=== PATIENT | female | born 1955 | race Caucasian/White ===

== ENCOUNTER → 2016-07-26 | Outpatient (CLI) | payer BC, OTHER ==
[~2016-07-26] MED LIST: ASCO500T2 PO; HORMONE REPLACEMENT; IBUP200T58 PO; LEVO100T5 PO; NAPR220T70 PO; PROG100C7 PO; THYR60TA PO; TRIA1TAB2 PO; VITA1CAP3 PO
[2016-07-26 15:27] LABS: BASO % 1 % (0-3); EOS % 3 % (0-3); HEMATOCRIT 41.9 % (36.0-47.0); HEMOGLOBIN 13.9 g/dL (12.0-15.5); LYMPH # 1.9 x10^3/uL (1.0-4.8); LYMPH % 28 % (24-48); MEAN CORPUSCULAR HEMOGLOBIN 32 pg (25-35); MEAN CORPUSCULAR HGB CONC 33 g/dL (31-37); MEAN CORPUSCULAR VOLUME 98 fL (79-100); MONO % 7 % (0-9); NEUT % 62 % (31-73); PLATELET COUNT 291 x10^3/uL (140-400); RED BLOOD COUNT 4.29 x10^6/uL (3.50-5.40); RED CELL DISTRIBUTION WIDTH 12.5 % (11.5-14.5)
[2016-07-26 15:38] LABS: PROTHROMBIN TIME PATIENT 12.1 SEC (11.7-14.0)
[2016-07-26 15:44] LABS: ALBUMIN/GLOBULIN RATIO 1.2 (1.0-1.7); CALCIUM 9.7 mg/dL (8.5-10.1); CREATININE 0.9 mg/dL (0.6-1.0); GFR 63.4; POTASSIUM 3.7 mmol/L (3.5-5.1); TOTAL BILIRUBIN 0.3 mg/dL (0.2-1.0); TOTAL PROTEIN 7.3 g/dL (6.4-8.2)
== END | disposition home or self-care (01) ==
LOC: SURGPAT 13:25
PROVIDERS: ATTEND Neurological Surgery
DX: Z01.818 Encounter for other preprocedural examination (principal)
CPT/HCPCS: 36415; 80053; 85027; 85610; 85730; 87641

== ENCOUNTER 2016-08-02 07:54 | Inpatient (IN) | payer BC ==
--- NOTE | 2016-07-30 10:44 | HP ---
ADMIT DATE: 08/02/2016 HISTORY OF PRESENT ILLNESS: The patient is a pleasant 60-year-old woman who is having difficulty with low back pain and pain which radiates into her left leg. The pain tends to radiate into the left hip and buttock and then radiates down her left lateral thigh and leg. There is some pain, which can radiate into the left inguinal region. There is also pain which can radiate into her right buttock along with tingling in that distribution. The problem started about 2-1/2 years ago. The pain did get better after conservative therapy including epidural steroid injections and now is worsening again. She says that in the morning she is having severe pain. She rates her pain as a 6-7/10. As the day progresses, the pain can improve. She said her most recent epidural steroid injection was in April 2016 and only helped her for about 2 weeks. She takes Advil to help control the pain. She does not notice weakness in her lower extremities. PAST MEDICAL HISTORY: Kidney stones, hypothyroidism. PAST SURGICAL HISTORY: Knee surgery in 07/2012, foot surgery in 07/2015. FAMILY HISTORY: Diabetes, heart problem/disease. 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 . Exercises daily. Denies substance abuse. Denies tobacco use. Drinks alcohol one to two times per month. ALLERGIES: No known drug allergies. CURRENT MEDICATIONS: Progesterone, levothyroxine, Zyrtec, Advil, diuretic. REVIEW OF SYSTEMS: A 12-point review of systems was obtained and is noncontributory except that mentioned above. PHYSICAL EXAMINATION: NEUROSURGERY EXAMINATION: GENERAL APPEARANCE: Alert, pleasant, no acute distress. HEAD: Normocephalic, atraumatic. SKIN: Warm and dry. MUSCULOSKELETAL: Lumbar paraspinal muscle bulk is normal, restricted range of motion of lumbar spine, [id number] tenderness of lower lumbar spine with palpation, normal range of motion of the lower extremities bilaterally. EXTREMITIES: No clubbing, cyanosis, or edema. NEUROLOGIC: Alert and oriented x 3, normal recent and remote memory, strength 5/5 in bilateral lower extremities, sensory was intact to light touch in bilateral lower extremities, reflexes were present and symmetric in the lower extremities bilaterally, straight leg raising was positive on the left side with buttock and posterior thigh pain. Straight leg raising was negative on the right, normal gait. IMAGING: I reviewed a lumbar MRI scan from 03/2016. I additionally reviewed plane lumbar radiographs from 2014. On the plain films, there is a grade 2 spondylolisthesis at L4-L5. There did not appear to be significant motion on flexion and extension films. On the MRI scan with the patient in supine position, the spondylolisthesis appears to be moderately large grade 1 at L4-L5. Additionally, at this level, there is severe lumbar spinal stenosis. ASSESSMENT/ PLAN: She has severe lumbar spinal stenosis and grade 2 spondylolisthesis at L4-L5 with standing. She has bilateral radicular symptoms which are worse on the left side and she has failed conservative measures. At this point, I recommend that she undergo lumbar laminectomy combined with posterior instrumentation and posterolateral fusion as well as anterior diskectomy and fusion at L4-L5. I discussed surgery with her in detail. I outlined the technique as well as the expected postoperative course. She understands. She would like to go ahead. I did outline the risk of surgery including nerve root injury and infection. I spoke about the possibility that she may not improve. I explained the importance of achieving fusion and explained that if she did not, she may require further surgery. She understands. She would like to go ahead. We will make the arrangements. RADHA MCKEON MD DR: ELIZABETH/arturo JOB#: [id number] / [id number] [place]
[2016-08-02] VITALS (9 sets, daily range): BP systolic 123–147; BP diastolic 61–83
[~2016-08-02] VITALS: Ht 172.7 cm; Wt 62.6 kg
[~2016-08-02 07:54] MED LIST changes: +CEFAZOLIN 2GM PREMIX 50 ML IV PRN; +HYDROMORPHONE 2 MG/ML VIAL. IV PRN; +IV RINGERS,LACTATED 1000ML 1,000 ML IV SCH; +LIDOCAINE 1% 1 ML SYRINGE. ID PRN; +ONDANSETRON PF 4 MG/2 ML VIAL. IV PRN; +PROCHLORPERAZINE 10 MG/2 ML VIAL. IV PRN
[2016-08-02] MEDS ORDERED: ROCURONIUM 50 MG/5 ML VIAL. ONE (08:14)
[2016-08-02] MEDS ORDERED: PHENYLEPHRINE in 0.9% NACL PF 1 MG/10 ML DISP.SYRIN. IV ONE (08:14)
[2016-08-02] MEDS ORDERED: DEXAMETHASONE SOD PHOS 20 MG/5 ML VIAL. ONE (08:14)
[2016-08-02] MEDS ORDERED: ONDANSETRON PF 4 MG/2 ML VIAL. ONE ×2 (08:14→11:06)
[2016-08-02] MEDS ORDERED: LIDOCAINE 2% 100 MG/5 ML DISP.SYRIN. ONE (08:14)
[2016-08-02] MEDS ORDERED: PROPOFOL 20 ML IV ONE (08:14)
[2016-08-02] MEDS ORDERED: PROPOFOL 100 ML IV ONE (08:17)
[2016-08-02] MEDS ORDERED: GELATIN SPONGE SIZE 100. ONE (08:34)
[2016-08-02] MEDS ORDERED: THROMBIN 20,000 UNIT SPRAY.SYRN KIT TP ONE (08:34)
[2016-08-02] MEDS ORDERED: KETOROLAC 60 MG/2 ML SYRINGE FOR OR. ONE (08:34)
[2016-08-02] MEDS ORDERED: BUPIVAC MPF-EPI 0.5%-1:200000 30 ML VIAL. ONE (08:34)
[2016-08-02] MEDS ORDERED: CEFAZOLIN PREMIX 2 GM/50 ML BAG. IV ONE ×2 (09:00→15:17)
[2016-08-02] MEDS ORDERED: FENTANYL PF 100 MCG/2 ML VIAL. ONE (09:27)
[2016-08-02] MEDS ORDERED: REMIFENTANIL 2 MG VIAL. IV ONE ×2 (09:27→13:27)
[2016-08-02] MEDS ORDERED: FAMOTIDINE 20 MG/2 ML VIAL ONE (09:28)
[2016-08-02] MEDS ORDERED: DESFLURANE > 120 MINUTES IH ONE (11:03)
[2016-08-02] MEDS ORDERED: EPHEDRINE PF IN SALINE 50 MG/5 ML DISP.SYRIN. IV ONE (11:04)
--- NOTE | 2016-08-02 11:34 | RAD ---
CT of the lumbar spine without contrast, 08/02/2016: History: Back pain, brain lab study Noncontrast scans were obtained with multiplanar reconstructions produced. The data was transferred to the operating room today aid in the patient's stereotactically guided surgery. The following findings are delineated: 1. At L1-2 there is no significant posterior disc bulge or protrusion. The central spinal canal and neural foramina are well maintained. 2. At L2-3 there are mild degenerative changes involving the facet joints with moderate posterior ligamentous thickening. There is moderate broad-based posterior disc bulging. There is a slight reverse spondylolisthesis. The thecal sac narrows down to an AP diameter of approximately 8 mm at the midline. There is moderate inferior foraminal encroachment bilaterally. 3. At L3-4 there are moderate degenerative changes involving the facet joints. There is considerable posterior ligamentous thickening. There is mild broad-based posterior disc bulging. The thecal sac narrows down to an AP diameter of 7 mm at the midline. There is moderate inferior foraminal encroachment bilaterally. 4. At L4-5 there are extensive hypertrophic degenerative changes involving the facet joints. There is an associated grade 1-2 spondylolisthesis with approximately 9 mm of anterior subluxation of the L4 vertebral body relative to L5. There is disc space narrowing with a vacuum disc phenomena. There is moderate posterior disc protrusion which is greatest at the level of the medial aspect of the right neural foramen. There is moderate central spinal stenosis in a triangular configuration. There is moderate bilateral foraminal encroachment, worse on the right. 5. At L5-S1 there is mild posterior disc bulging and spurring there are mild degenerative changes involving the facet joints. The central spinal canal is well-preserved. There is mild left foraminal encroachment.
[2016-08-02] MEDS: BACITRACIN 50,000 UNIT in IV NORMAL SALINE 1000ML BAG 1,000 ML IRR ONE ×2 (11:39→11:49)
[2016-08-02] MEDS ORDERED: PROPOFOL 50 ML IV ONE (13:26)
[2016-08-02] MEDS ORDERED: 0.9 % SODIUM CHLORIDE 50 ML VIAL. IJ ONE ×2 (13:27)
[2016-08-02] MEDS ORDERED: ONDANSETRON PF 4 MG/2 ML VIAL. IV PRN (16:00)
[2016-08-02] MEDS ORDERED: CALCIUM CARBONATE 500 MG TAB.CHEW PO PRN (16:00)
[2016-08-02] MEDS ORDERED: MAGNESIUM HYDROXIDE 2,400 MG/30 ML ORAL.SUSP. PO PRN (16:00)
[2016-08-02] MEDS ORDERED: HORMONE REPLACEMENT SCH (16:00)
[2016-08-02] MEDS ORDERED: DIPHENHYDRAMINE HCL 25 MG CAPSULE PO PRN (16:00)
[2016-08-02] MEDS ORDERED: OXYCODONE/APAP 5/325 TABLET. PO PRN (16:00)
[2016-08-02] MEDS ORDERED: 0.9 % SODIUM CHLORIDE 10 ML DISP.SYRIN. IV PRN (16:00)
[2016-08-02] MEDS ORDERED: ACETAMINOPHEN 325 MG TABLET. PO PRN (16:00)
[2016-08-02] MEDS ORDERED: FENTANYL PF 100 MCG/2 ML VIAL. IV PRN (16:00)
[2016-08-02] MEDS ORDERED: TRIAMTERENE/HCTZ 37.5/25MG TABLET. PO PRN (16:00)
[2016-08-02] MEDS ORDERED: DIPHENHYDRAMINE 50 MG/ML VIAL IV PRN (16:00)
[2016-08-02] MEDS ORDERED: ZOLPIDEM 5 MG TABLET. PO PRN (16:00)
[2016-08-02] MEDS ORDERED: MAG HYDROX/AL HYDROX/SIMETH 30 ML ORAL.SUSP PO PRN (16:00)
[2016-08-02] MEDS ORDERED: CYCLOBENZAPRINE 10 MG TABLET. PO PRN (16:00)
[2016-08-02] MEDS: FENTANYL PF 100 MCG/2 ML VIAL. IV PRN ×7 (16:02→21:13)
[2016-08-02] MEDS: MORPHINE SULFATE 2 MG/ML DISP.SYRIN. IV PRN ×3 (16:05→16:29)
[2016-08-02] MEDS: PROGESTERONE, MICRONIZED 100 MG CAPSULE PO SCH (17:00)
--- NOTE | 2016-08-02 17:12 | OP ---
DATE OF SURGERY: 08/02/2016 PREOPERATIVE DIAGNOSES: Spondylolisthesis grade 2, L4-L5 with severe lumbar spinal stenosis and lumbar radiculopathy. POSTOPERATIVE DIAGNOSES: Spondylolisthesis grade 2, L4-L5 with severe lumbar spinal stenosis and lumbar radiculopathy. OPERATION PERFORMED: Bilateral hemilaminotomies with decompression of dura and nerve root, L4-L5, posterior instrumentation and posterolateral fusion, L4-L5 with autograft and allograft bone. The operation was done with bone marrow aspirate, BrainLAB guidance, EMG, triggered EMG, fluoroscopy. SURGEON: John Mckeon M.D. SURVEYOR [employer] DIRECTIONAL: José Antonio Cool MD, assisted with surgery, assisted with the exposure, the microdecompression as well as the instrumentation and closure. OPERATIVE INDICATIONS: The patient is a very pleasant 60-year-old who developed intractable back and bilateral leg pain, worse on the left side, was found on imaging studies to have the above-mentioned findings. I recommended decompression and instrumented fusion. I spoke with her about the surgery, the risks, the technique and the expected postoperative course and she wished to go ahead. DESCRIPTION OF PROCEDURE: Following general endotracheal anesthesia, the patient was placed in the prone position carefully on the Ambrose table. We were careful to avoid any pressure points. Her lumbar region was prepped and draped in the standard fashion. CELSO hose and AV impulse boots were applied for DVT prophylaxis. A microscope was draped. Fluoroscopy was draped and brought in the field. Ancef 2 grams was given less than 1 hour prior to initiation of the procedure. The BrainLAB system was initialized by placing 2 pins in the right iliac crest and then an incision was made in the midline over the L4-L5 interspace. I dissected down through the skin and subcutaneous tissue, reflected the paraspinal muscles and placed a Bellflower micro disc retractor. I, at this point, used the BrainLAB system to cannulate the pedicles at L4 and L5 bilaterally. This was done by first drilling into the posterior aspect of the pedicle, using anatomic landmarks as well as BrainLAB system. We also used stimulated EMG monitoring for the placement of the black ball followed by the tap, followed by screw placement at the left side and then followed at the right side. The pedicles were tapped. We then covered those openings with bone wax, and then directed my attention to the right side at L4-L5, brought in the microscope and using microscopic technique under magnification, I burred down a very generous hemilaminotomy. There was very thickened, hypertrophic ligament, which was markedly compressing the root and dura at the level of the disc and extending both above and below this and I worked gently and trimmed this material away. It was very severely compressing on the right side, less so on the left side, but still marked compression was present, which was completely relieved. I did perform partial foraminotomies. I did work superiorly and visualized the upper exiting root. Following this, then I evaluated for the placement of an anterolateral cage. The L4 root was enlarged, swollen and could not be manipulated without discharging and was evidence on the EMG monitor. For this region, I felt that it would be imprudent to perform an anterior discectomy and fusion and that there would be too much pressure on the nerve root. Therefore, I placed pedicle screws at L4 and L5 using [employer] system and 6.5 screws. The rods were placed. The system was torqued. I did work to help reduce the spondylolisthesis. Posterolaterally, I excoriated the transverse processes and lateral facets and aspirated 20 mL of bone marrow and mixed this with allograft and autograft and placed this in the lateral gutters. At this point, then I irrigated copiously with antibiotic solution. I had an excellent decompression. I did lay Gelfoam over the hemilaminotomy sites. The nerve roots were well visualized under no significant pressure. I irrigated, removed the retractors, and obtained hemostasis in the muscle and I closed the wound in layers with absorbable suture and the skin was closed with 4-0 subcuticular stitch. The operation went very well and the patient was taken to recovery room in excellent condition. I was quite pleased with the surgery. JOHN MCKEON MD DR: ELIZABETH/arturo JOB#: [id number] / [id number] [place]
[2016-08-02] MEDS: CEFAZOLIN SODIUM 1 GM in IV NORMAL SALINE 50ML 50 ML IV SCH (18:35)
[2016-08-02] MEDS: DOCUSATE SODIUM 100 MG CAPSULE PO SCH (21:08)
[2016-08-02] MEDS: POTASSIUM CL 20MEQ D5-0.45NACL 1,000 ML IV SCH (22:32)
[2016-08-03] MEDS: CEFAZOLIN SODIUM 1 GM in IV NORMAL SALINE 50ML 50 ML IV SCH ×2 (02:57→10:36)
[2016-08-03 03:07] VITALS: BP 127/66
[2016-08-03] MEDS: POTASSIUM CL 20MEQ D5-0.45NACL 1,000 ML IV SCH (05:15)
[2016-08-03] MEDS: OXYCODONE/APAP 5/325 TABLET. PO PRN ×2 (06:42→12:24)
[2016-08-03 06:56] VITALS: BP 126/78
[2016-08-03] MEDS ORDERED: LEVOTHYROXINE 100 MCG TABLET PO SCH (07:00)
[2016-08-03] MEDS: DOCUSATE SODIUM 100 MG CAPSULE PO SCH (08:44)
[2016-08-03] MEDS: PROGESTERONE, MICRONIZED 100 MG CAPSULE PO SCH (08:44)
[2016-08-03] MEDS ORDERED: ASCORBIC ACID 500 MG TABLET PO SCH (09:00)
--- NOTE | 2016-08-03 10:02 | DISCH ---
DISCHARGE INSTRUCTIONS Condition on Discharge Condition on Discharge: Stable Activity After Discharge Activity Instructions for Disc: Activity as tolerated, Avoid exertion Bathing Instructions: Shower-keep dressing dry Lifting Instructions after Dis: No heavy lifting, No pulling or pushing, Do not lift >10 pounds Driving Instructions after Dis: No driving for 2 weeks Diet after Discharge Additional Diet Restrictions: resume home diet Wound Incision Care Wound/Incision Care: Ice to area for comfort Other wound/incision instructi: may remove dressing in 48 hrs if dry then may shower- no soaking Contacting the after DC Call your doctor for: Concerns you may have Follow-Up Follow up with: Dr. Mckeon in 2 weeks [phone] RADHA MCKEON MD Aug 03, 2016 10:02
[2016-08-03] MEDS ORDERED: DOCU-27 PO (10:04)
[2016-08-03] MEDS ORDERED: CYCL10TA2 PO (10:04)
[2016-08-03] MEDS ORDERED: OXYC1TAB7 PO (10:04)
--- NOTE | 2016-08-03 11:39 | DS ---
DATE OF DISCHARGE: 08/03/2016 DISCHARGE DIAGNOSES: Spondylolisthesis grade 2, L4-L5 with severe lumbar spinal stenosis and lumbar radiculopathy. OPERATION PERFORMED: Bilateral hemilaminotomies with decompression of dura and nerve root, L4-L5, posterior instrumentation and fusion L4-L5. HISTORY OF PRESENT ILLNESS: The patient is a very pleasant 60-year-old who developed intractable back and bilateral leg pain, worse on the left and was found to have the above-mentioned findings on imaging studies. I recommended decompression and instrumented fusion. She understood the surgery and the risk and wished to proceed. HOSPITAL COURSE: She was admitted to the floor postoperatively where she did well. She was up ambulating in the room in the halls. Physical therapy was initiated and instruction was given to her regarding her activities. Her pain is well controlled. She notes significant improvement in her lower extremity pain. She is in good condition, was discharged home. DISCHARGE MEDICATIONS: She will resume her medications per the [facility]. DISCHARGE INSTRUCTIONS: She was instructed regarding incision care, activity restrictions and expectations for the next several weeks. She will follow up in our office in 2 weeks. She understands to call with any questions or concerns. RADHA MCKEON MD DR: LOREE/arturo JOB#: [id number] / [id number]
[2016-08-03 12:24] VITALS: BP 122/73
== END 2016-08-03 14:50 | disposition home or self-care (01) | DRG 460 ==
LOC: OPSVCIP 07:54 → 4 SOUTHEST 17:01
PROVIDERS: ADMIT Neurological Surgery; ATTEND Neurological Surgery
PROC: 01NB0ZZ Release Lumbar Nerve, Open Approach (ICD-10-PCS; 2016-08-02)
PROC: 4A11X4G Monitoring of Peripheral Nervous Electrical Activity, Intraoperative, External Approach (ICD-10-PCS; 2016-08-02)
PROC: 0SG0071 Fusion of Lumbar Vertebral Joint with Autologous Tissue Substitute, Posterior Approach, Posterior Column, Open Approach (ICD-10-PCS; principal; 2016-08-02 10:00)
DX: M48.06 Spinal stenosis, lumbar region (principal); M54.16 Radiculopathy, lumbar region; M43.16 Spondylolisthesis, lumbar region; E03.9 Hypothyroidism, unspecified; Z83.3 Family history of diabetes mellitus; Z87.442 Personal history of urinary calculi
CPT/HCPCS: 36415; 72131; 76000; 86850; 86900; 86901; 88304; 88311; C1713; J0690; J1100; J1885; J2270; J2370; J2405; J2704; J3010; J3490; J7030; J7120; S0028; 97530

== ENCOUNTER → 2016-10-21 | Outpatient (CLI) | payer BC ==
[~2016-10-21] MED LIST changes: -CEFAZOLIN 2GM PREMIX 50 ML IV PRN; +CYCL10TA2 PO; +DOCU-27 PO; -HYDROMORPHONE 2 MG/ML VIAL. IV PRN; -IV RINGERS,LACTATED 1000ML 1,000 ML IV SCH; -LIDOCAINE 1% 1 ML SYRINGE. ID PRN; -ONDANSETRON PF 4 MG/2 ML VIAL. IV PRN; +OXYC1TAB7 PO; -PROCHLORPERAZINE 10 MG/2 ML VIAL. IV PRN
--- NOTE | 2016-10-21 09:30 | KCIC ---
PROCEDURE Two views lumbar spine. HISTORY Fusion in July. Left hip pain. TECHNIQUE Two views of the lumbar spine are submitted for review. COMPARISON MRI from April 01, 2016. FINDINGS Since prior study there has been pedicle screw and suleman instrumentation at L4-L5 with partial decompression on the left. Hardware appears well seated. Anterolisthesis at this level is decreased to 8 millimeters. Retrolisthesis at L2-L3 and L3-L4 appear similar to prior study. There is no fracture. Vertebral body height is maintained. IMPRESSION Pedicle screw and suleman instrumentation at L4-L5, decrease in the degree of anterolisthesis at this level. Electronically signed by: Dale Siegel MD (Oct 21, 2016 09:29:09)
== END | disposition home or self-care (01) ==
LOC: KCIC 08:18
PROVIDERS: ATTEND Neurological Surgery
DX: M25.552 Pain in left hip (principal)
CPT/HCPCS: 72100

== ENCOUNTER → 2017-03-25 | Outpatient (CLI) | payer BC ==
[~2017-03-25] MED LIST changes: +DOCU-109 PO; -DOCU-27 PO; +PROG100C15 PO; -PROG100C7 PO
--- NOTE | 2017-03-25 13:02 | KCIC ---
Examination: 5 views of the cervical spine and 2 views of the lumbar spine HISTORY: History of neck pain, lumbar fusion, low back pain COMPARISON: Lumbar spine from 10/21/2016 FINDINGS: Cervical spine: There is reversal of normal cervical lordosis There is severe intervertebral disc height loss identified at C5-C6, C6-C7 vertebral levels with moderate size anterior osteophyte formation The facets are well aligned There is mild compression changes of C5, C6 vertebral levels No evidence of prevertebral soft tissue swelling identified There is severe neural foraminal identified at C5-C6. There is moderate neural foraminal narrowing identified at C6-C7, C7-T1 vertebral levels. There is moderate foraminal narrowing identified at left C3-C4 vertebral level. Lateral masses of C1 are aligned with C2 vertebra. The C2 dens appears intact Lumbar spine: Lumbar fusion hardware with bilateral pedicle screws identified at L4-L5 vertebral level. There is 5 mm anterolisthesis of L4 on L5 which is unchanged since prior exam. There is 2 mm retrolisthesis of L3 on L4 and 3 mm retrolisthesis of L2 on L3 again identified. The facets are well aligned. Moderate facet degenerative changes identified IMPRESSION: 1. Severe degenerative changes cervical spine as described. Mild compression changes at C5, C6 vertebral levels. MRI may be useful for further evaluation. 2. Unchanged anterolisthesis of L4 on L5. Hardware and pedicle screws unchanged. Moderate multilevel degenerative changes lumbar spine. Electronically signed by: Zachery San MD (03/25/2017 12:59 PM) [id number]
== END | disposition home or self-care (01) ==
LOC: KCIC 09:44
PROVIDERS: ATTEND Family Medicine
DX: M47.892 Other spondylosis, cervical region (principal); M47.896 Other spondylosis, lumbar region
CPT/HCPCS: 72050

== ENCOUNTER → 2017-03-25 | Outpatient (CLI) | payer BC ==
--- NOTE | 2017-03-25 13:02 | KCIC ---
Examination: 5 views of the cervical spine and 2 views of the lumbar spine HISTORY: History of neck pain, lumbar fusion, low back pain COMPARISON: Lumbar spine from 10/21/2016 FINDINGS: Cervical spine: There is reversal of normal cervical lordosis There is severe intervertebral disc height loss identified at C5-C6, C6-C7 vertebral levels with moderate size anterior osteophyte formation The facets are well aligned There is mild compression changes of C5, C6 vertebral levels No evidence of prevertebral soft tissue swelling identified There is severe neural foraminal identified at C5-C6. There is moderate neural foraminal narrowing identified at C6-C7, C7-T1 vertebral levels. There is moderate foraminal narrowing identified at left C3-C4 vertebral level. Lateral masses of C1 are aligned with C2 vertebra. The C2 dens appears intact Lumbar spine: Lumbar fusion hardware with bilateral pedicle screws identified at L4-L5 vertebral level. There is 5 mm anterolisthesis of L4 on L5 which is unchanged since prior exam. There is 2 mm retrolisthesis of L3 on L4 and 3 mm retrolisthesis of L2 on L3 again identified. The facets are well aligned. Moderate facet degenerative changes identified IMPRESSION: 1. Severe degenerative changes cervical spine as described. Mild compression changes at C5, C6 vertebral levels. MRI may be useful for further evaluation. 2. Unchanged anterolisthesis of L4 on L5. Hardware and pedicle screws unchanged. Moderate multilevel degenerative changes lumbar spine. Electronically signed by: Zachery San MD (03/25/2017 12:59 PM) [id number]
== END | disposition home or self-care (01) ==
LOC: KCIC 09:37
PROVIDERS: ATTEND Neurological Surgery
DX: M47.896 Other spondylosis, lumbar region (principal); M47.892 Other spondylosis, cervical region
CPT/HCPCS: 72100

== ENCOUNTER → 2017-04-07 | Outpatient (CLI) | payer BC ==
--- NOTE | 2017-04-07 09:51 | KCIC ---
EXAMINATION: Magnetic resonance imaging (MRI) of the cervical spine without contrast HISTORY: Cervical stenosis with shooting pain into the thoracic region in recent months. TECHNIQUE: Multiplanar multi-weighted MRI of the cervical spine was performed without intravenous contrast using the standard cervical spine protocol. Contrast information: None administered. COMPARISON: Cervical spine radiograph March 25, 2017 FINDINGS: There is retrolisthesis of C5 on C6 and to a lesser degree C6 on C7. Vertebral bodies demonstrate normal signal intensity on all sequences. No acute fracture is identified; however, if trauma is suspected, a CT scan would be a more sensitive examination for fractures. The craniocervical junction is normal. The visualized portions of the skull base and the posterior fossa are normal. The spinal cord demonstrates normal signal intensity on all sequences. There is disc height loss with endplate degenerative changes at C5-C6 and to a lesser degree C6-C7. No soft tissue abnormality is identified. Normal signal voids are present in the vertebral arteries. C2-C3: There is minimal posterior disc osteophyte complex. There is no facet arthropathy. There is no uncovertebral joint disease. There is no neuroforaminal stenosis. There is no spinal canal stenosis. C3-C4: There is minimal posterior disc osteophyte complex. There is mild left facet arthropathy. There is mild uncovertebral joint disease. There is mild left neuroforaminal stenosis. There is no spinal canal stenosis. C4-C5: There is a posterior disc osteophyte complex. There is mild left facet arthropathy. There is mild uncovertebral joint disease. There is mild left neuroforaminal stenosis. There is no spinal canal stenosis.canal stenosis. C5-C6: There is a posterior disc osteophyte complex asymmetric to the right. There is mild facet arthropathy. There is moderate, right greater than left, uncovertebral joint disease. There is moderate right and mild left neuroforaminal stenosis. There is moderate spinal canal stenosis. C6-C7: There is a posterior disc osteophyte complex There is mild facet arthropathy. There is mild uncovertebral joint disease. There is mild neuroforaminal stenosis. There is mild spinal canal stenosis. C7-T1: The disk is normal in configuration. There is mild facet arthropathy. There is mild left uncovertebral joint disease. There is no neuroforaminal stenosis. There is no spinal canal stenosis. IMPRESSION: Mild to moderate degenerative changes of the cervical spine, as detailed above. There is retrolisthesis of C5 on C6 with posterior disc osteophyte complex, asymmetric to the right. Findings result in moderate right neural foraminal stenosis and moderate spinal canal stenosis. Electronically signed by: Anneliese Joseph MD (04/07/2017 9:48 AM) [facility]
== END | disposition home or self-care (01) ==
LOC: KCIC MRI 07:45
PROVIDERS: ATTEND Neurological Surgery
DX: M48.02 Spinal stenosis, cervical region (principal); M25.78 Osteophyte, vertebrae
CPT/HCPCS: 72141

== ENCOUNTER → 2018-03-15 | Outpatient (CLI) | payer BC, OTHER ==
--- NOTE | 2018-03-15 13:23 | KCIC ---
RS Compliance Statement: One or more of the following individualized dose reduction techniques were utilized for this examination: 1. Automated exposure control 2. Adjustment of the mA and/or kV according to patient size 3. Use of iterative reconstruction technique EXAMINATION: CT of the paranasal sinuses without contrast 03/15/2018 1:00 PM HISTORY: Acute sinusitis. History of multiple sinus infections since December 2017 TECHNIQUE: CT of the paranasal sinuses was performed using sinus protocol without contrast COMPARISON: None available FINDINGS: Review of the topogram demonstrates no abnormalities. The frontal sinuses are well-aerated. The ethmoid sinuses are well aerated. The maxillary sinuses are well aerated. The sphenoid sinuses are well aerated. There is suggestion of an [place] air cell in the right sphenoid sinus. The ostiomeatal units are open bilaterally. The nasal septum is deviated to the left anteriorly and to the right posteriorly and inferiorly. There is a nasal spur projecting to the right communicating with the mucosal surface of the right middle turbinate. No areas of bony erosion are identified. The orbits are normal. Limited view of the frontal lobes is normal. Mastoid air cells are well aerated. Skull base is intact. Atlantoaxial articulation is normal. IMPRESSION: Patent ostiomeatal units. Paranasal sinuses appear well aerated. There is deviation of the nasal septum, as detailed above. Electronically signed by: Anneliese Joseph MD (03/15/2018 1:20 PM) [id number]
== END | disposition home or self-care (01) ==
LOC: KCIC CT 12:42
PROVIDERS: ATTEND Otolaryngology
DX: J34.2 Deviated nasal septum (principal); E03.9 Hypothyroidism, unspecified; M19.071 Primary osteoarthritis, right ankle and foot; Z83.3 Family history of diabetes mellitus
CPT/HCPCS: 70486

== ENCOUNTER → 2019-06-07 | Outpatient (CLI) | payer BC, MEDICARE, OTHER ==
--- NOTE | 2019-06-07 12:14 | KCIC ---
MRI of the lumbar spine without contrast 06/07/2019 CLINICAL HISTORY: Low back pain for 2 months. History of previous lumbar spine fusion. TECHNIQUE: Unenhanced T1-weighted and T2-weighted sagittal and axial and inversion recovery sagittal images of the lumbar spine were obtained. FINDINGS: Comparison study is dated 04/01/2016. Very mild S-shaped curvature of the thoracolumbar spine is seen. Mild anterolisthesis of L4 in relation to L5 is noted. The patient is post laminectomy and posterolateral fusion using pedicle screws and stabilizing rods at L4-5. Degenerative signal changes are seen involving the L2-3, L3-4, L4-5 and L5-S1 discs. Degenerative signal changes are seen within the marrow surrounding these discs. Loss of height of the L2-3, L4-5 and L5-S1 discs is noted. Hemangiomas are seen involving the L2 and L3 vertebral bodies. These measure 5 mm to 1.2 cm in size. The conus medullaris is normal morphology, position, and signal characteristics. At the L1-2 disc space there is a mild generalized disc bulge. Degenerative changes are seen involving the facet joints bilaterally. There are small facet joint effusions bilaterally. There is mild ligamentum flavum hypertrophy bilaterally. These findings do not result in significant central spinal canal or neural foraminal stenosis. At the L2-3 disc space there is a mild to moderate generalized disc bulge. Degenerative changes are seen involving the facet joints bilaterally. There is mild ligamentum flavum hypertrophy bilaterally. There are small to moderate-sized facet joint effusions bilaterally. These findings when combined result in mild central spinal canal stenosis. No neural foraminal stenosis is seen. At the L3-4 disc space there is a mild to moderate generalized disc bulge. Degenerative changes are seen involving the facet joints bilaterally. There is moderate ligamentum flavum hypertrophy bilaterally. These findings when combined result in mild to moderate central spinal canal stenosis with mild right greater than left neural foraminal stenosis is seen. At the L4-5 level degenerative changes are seen involving the facet joints, right greater than left. There is a mild generalized disc bulge which is eccentric to the right. These findings when combine with the anterolisthesis at this level do not result in significant central spinal canal stenosis. Mild right neural foraminal stenosis is seen. The left neural foramen is patent. At the L5-S1 disc space there is a minimal generalized disc bulge. Degenerative changes are seen involving the facet joints bilaterally. These findings when combined do not result in significant central spinal canal stenosis. No neural foraminal stenosis is seen. IMPRESSION: 1. Post laminectomy and fusion at L4-5. 2. The changes of degenerative disc disease are seen throughout the lumbar spine. These findings results in mild central spinal canal stenosis at L2-3 and mild to moderate central spinal canal stenosis at L3-4. Mild right greater than left neural foraminal stenosis is seen at L3-4. Mild right neural foraminal stenosis is seen at L4-5. Electronically signed by: Fabricio Red MD (06/07/2019 12:11 PM) [id number]
== END | disposition home or self-care (01) ==
LOC: KCIC MRI 09:06
PROVIDERS: ATTEND Family Medicine
DX: Z98.890 Other specified postprocedural states (principal); M51.36 Other intervertebral disc degeneration, lumbar region; M51.27 Other intervertebral disc displacement, lumbosacral region; M48.061 Spinal stenosis, lumbar region without neurogenic claudication
CPT/HCPCS: 72148

== ENCOUNTER → 2019-08-03 | Outpatient (CLI) | payer BC ==
[~2019-08-03] MED LIST changes: +GLUC1CAP48 PO; +HYDR12.575 PO; +HYDR12.58 PO; +MULT-107 PO; +MULT-245 PO; +SAW160CA3 PO
[2019-08-03 13:40] LABS: BASO % 1 % (0-3); EOS # 0.1 x10^3/uL (0.0-0.7); EOS % 2 % (0-3); HEMATOCRIT 43.4 % (36.0-47.0); HEMOGLOBIN 14.7 g/dL (12.0-15.5); LYMPH # 1.3 x10^3/uL (1.0-4.8); LYMPH % 21 % (24-48); MEAN CORPUSCULAR HEMOGLOBIN 32 pg (25-35); MEAN CORPUSCULAR HGB CONC 34 g/dL (31-37); MEAN CORPUSCULAR VOLUME 95 fL (79-100); MONO # 0.5 x10^3/uL (0.0-1.1); MONO % 8 % (0-9); NEUT # 4.6 x10^3/uL (1.8-7.7); NEUT % 70 % (31-73); PLATELET COUNT 275 x10^3/uL (140-400); RED BLOOD COUNT 4.55 x10^6/uL (3.50-5.40); RED CELL DISTRIBUTION WIDTH 12.3 % (11.5-14.5); WHITE BLOOD COUNT 6.6 x10^3/uL (4.0-11.0)
[2019-08-03 14:16] LABS: ALBUMIN 3.8 g/dL (3.4-5.0); ALBUMIN/GLOBULIN RATIO 1.2 (1.0-1.7); CALCIUM 8.9 mg/dL (8.5-10.1); CREATININE 0.7 mg/dL (0.6-1.0); POTASSIUM 3.6 mmol/L (3.5-5.1); TOTAL BILIRUBIN 0.3 mg/dL (0.2-1.0)
== END | disposition home or self-care (01) ==
LOC: SURGPAT 12:51
PROVIDERS: ATTEND Obstetrics & Gynecology
DX: E07.89 Other specified disorders of thyroid (principal); Z01.818 Encounter for other preprocedural examination
CPT/HCPCS: 36415; 80053; 85025

== ENCOUNTER 2019-08-09 05:45 | Observation (INO) | payer BC ==
[~2019-08-09] VITALS: Ht 172.7 cm; Wt 65.5 kg
[2019-08-09] VITALS (10 sets, daily range): BP systolic 125–151; BP diastolic 54–80
[2019-08-09] MEDS ORDERED: MORPHINE SULFATE 2 MG/ML VIAL. IV PRN ×2 (07:00→10:45)
[2019-08-09] MEDS ORDERED: IV RINGERS,LACTATED 1000ML 1,000 ML IV SCH (07:00)
[2019-08-09] MEDS ORDERED: fentaNYL PF VIAL 100 MCG/2 ML VIAL IV PRN ×2 (07:00)
[2019-08-09] MEDS ORDERED: LIDOCAINE 1% PF 2 ML VIAL. ID PRN (07:00)
[2019-08-09] MEDS ORDERED: HYDROmorphone 2 MG/ML VIAL IV PRN (07:00)
[2019-08-09] MEDS ORDERED: ONDANSETRON PF 4 MG/2 ML VIAL. IV PRN ×2 (07:00→10:45)
[2019-08-09] MEDS ORDERED: PROCHLORPERAZINE 10 MG/2 ML VIAL. IV PRN (07:00)
[2019-08-09] MEDS ORDERED: MIDAZOLAM HCL/PF 2 MG/2 ML VIAL. ONE (07:11)
[2019-08-09] MEDS ORDERED: KETOROLAC 30 MG/ML VIAL. ONE (07:11)
[2019-08-09] MEDS ORDERED: PROPOFOL 20 ML IV ONE (07:11)
[2019-08-09] MEDS ORDERED: KETAMINE HCL IN NACL, ISO-OSM 50 MG/5 ML SYRINGE ONE (07:11)
[2019-08-09] MEDS ORDERED: FAMOTIDINE 20 MG/2 ML VIAL ONE (07:11)
[2019-08-09] MEDS ORDERED: LIDOCAINE 2% PF 5 ML VIAL. ONE (07:11)
[2019-08-09] MEDS ORDERED: fentaNYL PF VIAL 100 MCG/2 ML VIAL ONE (07:11)
[2019-08-09] MEDS ORDERED: DEXAMETHASONE SOD PHOS 4 MG/ML VIAL ONE (07:11)
[2019-08-09] MEDS ORDERED: ROCURONIUM 50 MG/5 ML VIAL. ONE (07:11)
[2019-08-09] MEDS ORDERED: ONDANSETRON PF 4 MG/2 ML VIAL. ONE (07:11)
[2019-08-09] MEDS ORDERED: ESTROGENS, CONJ VAGINAL CREAM 30GM TUBE. ONE (07:15)
[2019-08-09] MEDS ORDERED: BUPIVACAINE-EPI 0.25%-1:200000 MPF 30 ML VIAL. ONE ×3 (07:16→08:05)
[2019-08-09] MEDS ORDERED: INDIGOTINDISULFONATE SODIUM 40 MG/5 ML AMPUL. ONE (07:16)
[2019-08-09] MEDS ORDERED: GLYCOPYRROLATE 1 MG/5 ML VIAL. ONE (08:13)
[2019-08-09] MEDS ORDERED: NEOSTIGMINE 10 MG/10 ML VIAL. ONE (08:53)
[2019-08-09] MEDS: LEVOTHYROXINE 88 MCG TABLET PO SCH (09:00)
[2019-08-09] MEDS ORDERED: SEVOFLURANE > 120 MINUTES. IH ONE (09:52)
--- NOTE | 2019-08-09 10:37 | PDOC ---
BRIEF OPERATIVE NOTE Date: Aug 09, 2019 Pre-Op Diagnosis pelvic organ prolapse with pressure (symptomatic) cervical, cystocele and rectocele Post-Op Diagnosis same Procedure Performed LAVH/BSO/anterior and posterior repairs Surgeon Dr. Randi Gallagher Installment Agent ROBERT Dunn Anesthesiologist Dr. Kinney Anesthesia Type: General Blood Loss 100cc IV Fluid 1300cc Urine Output 275cc clear via negro Specimens Obtained cervix, uterus,bilateral tubes and ovaries, vaginal mucosa Findings Normal uterus with bilateral tubes and ovaries, 2 degree uterine prolapse and 2 degree cystocele and rectocele Complications none Operative Note [id number] RANDI GALLAGHER MD Aug 09, 2019 10:37
[2019-08-09] MEDS ORDERED: oxyCODONE/APAP 5/325 1 TAB TABLET PO PRN (10:45)
[2019-08-09] MEDS ORDERED: NALOXONE 0.4 MG/ML VIAL. IV PRN (10:45)
[2019-08-09] MEDS ORDERED: diphenhydrAMINE HCL 25 MG CAPSULE PO PRN (10:45)
[2019-08-09] MEDS ORDERED: LACTULOSE 20 GM/30 ML SOLUTION. PO PRN (10:45)
[2019-08-09] MEDS ORDERED: 0.9 % SODIUM CHLORIDE 10 ML DISP.SYRIN. IV PRN (10:45)
[2019-08-09] MEDS ORDERED: ZOLPIDEM 5 MG TABLET. PO PRN (10:45)
[2019-08-09] MEDS ORDERED: MAG HYDROX/ALUMINUM HYD/SIMETH 30 ML ORAL.SUSP PO PRN (10:45)
[2019-08-09] MEDS ORDERED: diphenhydrAMINE 50 MG/ML VIAL IV PRN (10:45)
[2019-08-09] MEDS ORDERED: CALCIUM CARBONATE 500 MG TAB.CHEW PO PRN (10:45)
[2019-08-09] MEDS ORDERED: SIMETHICONE 80 MG TAB.CHEW PO PRN (10:45)
[2019-08-09] MEDS ORDERED: MAGNESIUM HYDROXIDE 2,400 MG/30 ML ORAL.SUSP. PO PRN (10:45)
[2019-08-09] MEDS ORDERED: HYDROcodone/APAP 5/325MG 1 TAB TABLET PO PRN (10:45)
--- NOTE | 2019-08-09 11:26 | OP ---
DATE OF SURGERY: 08/09/2019 PREOPERATIVE DIAGNOSIS: Pelvic organ prolapse with symptomatic pressure with cervical and uterine prolapse, cystocele, and rectocele, second-degree cystocele and second-degree rectocele. POSTOPERATIVE DIAGNOSIS: Pelvic organ prolapse with symptomatic pressure with cervical and uterine prolapse, cystocele, and rectocele, second-degree cystocele and second-degree rectocele. PROCEDURES: Laparoscopic-assisted vaginal hysterectomy, bilateral salpingo-oophorectomy, anterior and posterior colporrhaphy with perineoplasty. SURGEON: Hilario Gallagher MD [employer] AGENT: ROBERT Rodriguez ANESTHESIOLOGIST: Dr. Kinney ANESTHESIA: General. ESTIMATED BLOOD LOSS: 100 mL. URINE OUTPUT: 275 mL, clear via Man catheter. INTRAVENOUS FLUIDS: 1300 mL of Crystalloid. SPECIMENS: Cervix, uterus, bilateral tubes and ovaries with anterior and posterior vaginal mucosa. COMPLICATIONS: None. FINDINGS: Normal uterus, bilateral tubes and ovaries, second-degree uterine prolapse, and second-degree cystocele and rectocele. DESCRIPTION OF PROCEDURE: This patient was taken to the operating room where general anesthesia was placed. The patient was placed in a dorsal lithotomy position in [facility]. The patient's abdomen and vagina were both prepped and draped in the normal sterile fashion and a Man catheter had been inserted under sterile technique. Upon my arrival, a timeout was performed. Once everyone agreed, a bivalve speculum was placed in the patient's vagina. A single-tooth tenaculum was used to grasp the anterior lip of the cervix. A 10 mL of 0.25% Marcaine with epinephrine was used to circumferentially inject around the cervix for both hemodissection and hemostatic purposes later. Once this was done, the Valtchev uterine manipulator was placed on the single tooth and the bivalve speculum was then removed. Top gloves were discarded and changed. Attention was then turned to the abdomen where a small infraumbilical skin incision was made with the scalpel. It was carried down through the underlying layer to the fascia with a curved Heide. The 5 mm Visiport was used directly into the abdominal cavity. Opening patient pressure was 2-3 mmHg. Carbon dioxide gas was used to then appropriately insufflate the abdominal cavity to maintain a pressure of 15 mmHg. Once this was done, the right side actually had a little bit of adhesions of her colon just above the appendix, although the appendix was free, but finding an area clear of any vasculature transilluminating the abdominal wall, making a small incision, and placing it under direct visualization atraumatically. A 4-5 mL of air was placed in that trocar cuff. I then did move it and look at the umbilical port. Once it was found to be clear, 4-5 mL of air was placed in this trocar cuff and then the camera was moved back to midline and the left lower quadrant port was placed exactly the same. Finding an area clear of any vasculature, there were no adhesions on the inside at all, transilluminating the abdominal wall, making a small incision, and placing the atraumatic 5-mm trocar under direct visualization and then placing 4-5 mL of air in this trocar cuff. The patient was placed after we were in. She was already in Trendelenburg at this point. The right tube and ovary were elevated. The ureter was clearly seen coursing low in the pelvis well out of the way, so staying high on the IP ligament just under the ovary. The LigaSure was used to cauterize and cut this and go all the way over under the tube and ovary, crossing the right round ligament, and starting that bladder flap anteriorly, pushing the uterus cephalad and stretching out the bladder flap in the cervix and uterus. This was done exactly the same on the left side; however, there were some adhesions of the colon on this side to the IP ligament side to open up the peritoneum lateral to the descending colon near the IP and I was able to find the ureter coursing low, so I had to open it up and the retroperitoneum just a little bit and find that ureter, but I was able to locate it, no problem, and then again staying high on the IP ligament just under the ovary, cauterizing and cutting, taking it over as well underneath crossing the left round ligament as well. Then, while pushing the uterus cephalad, elevating the bladder flap with the [place], and going over with the monopolar hook, creating the bladder flap sharply and peeling it down, the uterine vessels were obtained on the left side and then the right side, staying inside that left pedicle going down through the cardinal and broad ligaments to the uterosacral. The uterus was completely blanched. Then, again staying inside that pedicle on the left side as well, hugging the cervix, and staying vertical through the cardinal and broad ligaments down to the uterosacral as well. The uterus was completely free on the back. It was completely blanched. The blood supply was obtained. So, at this point, all instruments were removed from the abdomen and attention was turned vaginally. The single tooth and Valtchev were removed. A weighted speculum was placed in the vagina. Thyroid Inés clamps were placed on the anterior and posterior lips of the cervix respectively. A scalpel was used to make a circumferential incision in the cervix. The Yankauer tip was used to just gently push up the anterior bladder peritoneum while sharply dissecting it off the cervix, just peeling it off layer by layer. Once it was up and peeled well, the open Ray-Ankur 4 x 4 was used to gently push off the anterior bladder peritoneum and the anterior cul-de-sac was digitally and bluntly entered. The 4 x 4 was removed and a curved [place] was placed in the anterior cul-de-sac. The cervix was elevated and the posterior cul-de-sac was sharply entered with the curved George scissors. A #0 Vicryl stitch was used to secure the posterior peritoneum here to the vaginal cuff. It was tagged with a curved Heide clamp. The needle was cut and passed off. Short weighted vaginal speculum was removed and replaced with the long Esme speculum in the posterior cul-de-sac. Once this was done, curved Rose Mary clamps x 2 were placed on the patient's left uterosacral ligament where they were doubly clamped with curved Rose Mary, cut with curved George scissors, and suture ligated x 2 with 0 Vicryl. Second one was taken through the vaginal cuff securing uterosacral ligament to the vaginal cuff, tagged with a straight Heide clamp, and the needle was cut and passed off. This was done exactly the same on the patient's right side, double clamping the uterosacrals with curved Rose Mary, cutting with George scissors, suture ligating x 2 with 0 Vicryl, taking the second one through the vaginal cuff, securing it with a straight Heide clamp, and cutting and passing the needle off. Once this was done, the remaining pedicles on both sides were delineated with the curved mixture and the vaginal LigaSure was used to cauterize and cut it. The cervix, uterus, bilateral tubes and ovaries were delivered in total and passed off for permanent pathology. There was a small sleeve lift that was fished out of the posterior cul-de-sac. A sponge stick was used to examine the pedicles, they were hemostatic. Once this was done, a long Allis was used to grasp the anterior bladder peritoneum. The long Esme speculum was removed and replaced with the short-weighted vaginal speculum. Again, a sponge stick was used to examine all the pedicles. Once it was assured to be hemostatic, 2-0 Vicryl was taken through the anterior bladder peritoneum, left uterosacral ligament, posterior peritoneum, and right uterosacral ligament, thus closing the peritoneum in a pursestring like fashion. At this point, a dilute solution of one part local to 0.25% Marcaine with epinephrine to 4 parts injectable saline was used, 50:200, to inject the anterior and posterior repairs. I believe a total of 100 mL was used on the anterior and posterior repairs of that dilute solution, but the anterior bladder peritoneum was injected. A scalpel was used to make a small vertical incision. Allis clamps were placed on either side of this and Metzenbaum scissors were used to open up the anterior bladder defect to about 1 cm to 1.5 cm below the urethral opening. Once it was done, placing Allis clamps along the way, they were on either side sharply and bluntly using the Metzenbaums and then an open Ray-Ankur 4 x 4. The bladder was dissected from the anterior vaginal mucosa and using the 4 x 4 to gently push it up and slight it up in the avascular plane. Once this was done, 4 interrupted 2-0 Vicryl sutures were placed reducing the defect, first placing them all, tagging them with curved Kellys, and cutting the needle off, then going back and tying them and using the blunt end of a pickup to reduce the defect and bring the mucosa together. A few interrupted stitches were placed over the mucosa as well for excellent results. Metzenbaum scissors were used to trim the anterior vaginal mucosa on both sides and then a full length 2-0 Vicryl was obtained and it was starting at the suburethral opening of the vaginal mucosa closing it in a running locked fashion until it actually went down the vaginal mucosa as well and it was tied to that posterior cuff tag. Once all of that was done, the hysterectomy and anterior repair were done. Josephine's were placed at 4 and 7 o'clock. The posterior perineal body and posterior defects were injected again with that one part local to 4 parts injectable saline dilute solution, I described above. Once it was done, a scalpel was obtained and a ciro shaped wedge was cut out of the vaginal opening and down on the perineal body. Once this was done, the Metzenbaum scissors were used to gently open up the posterior defect as well, placing Allis clamps along the way until I was about 1 cm below the vaginal cuff posterior tag. Once this was done again sharply and bluntly using the Metzenbaum scissors, opening them up and standing up the Allises on both sides, releasing it on the edges and then using the open 4 x 4 to gently push up reducing the posterior defect here as well. 4 to 5 interrupted 2-0 Vicryl sutures were placed and then a few over the top as well. First placing them all, tagging them, and then going back and tying them in order using the blunt end again of a pickup to reduce the defect and bring the edges together. Once they were together, a few interrupted sutures were placed as well. The vaginal mucosa was again trimmed. Once this was done, a full length 2-0 Vicryl was used to close the posterior defect and go under the perineal body, almost like an episiotomy to bring together the perineal body, subcuticular the perineal body and bring it back into the vagina to tie it off. The bleeding was absolutely hemostatic at this point. The anterior and posterior defects looked good. The cuff looked good. Premarin cream was placed over the edges. No packing, just Premarin cream and all sponge, lap, and needle counts had been correct x 2 below. At this point, all gloves were discarded and changed and attention was turned back above for a second look. At this point, the patient was placed back in Trendelenburg. Gas was reinsufflated. Copious irrigation revealed hemostasis. The right and left pericolic gutters were clear. The cuff was dry. Tisseel was placed over the cuff and the pedicles. At this point, the 4-5 mL of air was taken out of all 3 trocar sites. The right and left lower quadrants ports were removed under direct visualization. Gas was released from the umbilical port and then all 3 port sites closed with 4-0 nylon and injected with 10 mL of 0.25% Marcaine with epinephrine. The patient is currently being awakened from anesthesia. HILARIO GALLAGHER MD DR: TERRENCE/arturo JOB#: [id number] / [id number]
--- NOTE | 2019-08-09 12:50 | NUR ---
Pt sat up in bed when she felt nauseated, she called and said she felt some blood come out. There was a small amount of blood noted on her OB pad along with some hormone cream. Pt cleaned up and new OB pad and mesh panties in place. Zofran given for nausea even though the pt reports feeling better.
--- NOTE | 2019-08-09 13:30 | NUR ---
Pt up with assist to the BR to void for the first time after surgery. Pt had another small amount of bright red blood mixed with urine and when she wiped with paper. Pt denies any pain at this time. Will notify Dr. Gallagher if bleeding it continues.
[2019-08-10 05:39] LABS: CALCIUM 8.9 mg/dL (8.5-10.1); CREATININE 0.9 mg/dL (0.6-1.0); GFR 62.8
[2019-08-10] MEDS: LEVOTHYROXINE 88 MCG TABLET PO SCH (05:45)
[2019-08-10 07:00] VITALS: BP 136/71
--- NOTE | 2019-08-10 08:43 | PDOC ---
SURGICAL PROGRESS NOTE Subjective Doing well without complaints. Scant spotting with wiping. Tolerating PO. Minimal pain. Wants to go home Vital Signs Vital Signs Date Time Temp Pulse Resp B/P (MAP) Pulse Ox O2 Delivery O2 Flow Rate FiO2 08/09/19 22:40 98.4 89 16 125/64 (84) 95 Room Air 98.4 08/09/19 11:02 10.0 I&O Intake and Output 08/10/19 07:00 Intake Total 2750 ml Output Total 2675 ml Balance 75 ml Intake Oral 800 ml IV Total 1950 ml Output Urine Total 2575 ml Estimated Blood Loss 100 ml # Voids 1 PATIENT HAS A BRAY: No General: Alert, Oriented X3, Cooperative, No acute distress HEENT: Atraumatic Heart: Regular rate Abdomen: Soft, No tenderness, No masses, Other (c/d/i with sutures) Extremities: No clubbing, No cyanosis, No edema, No tenderness/swelling Skin: No rashes, No breakdown Neuro: Normal speech Psych/Mental Status: Mental status NL, Mood NL Labs Laboratory Tests Test 08/10/19 04:15 Hematocrit 41.8 % (36.0-47.0) Sodium Level 142 mmol/L (136-145) Potassium Level 4.0 mmol/L (3.5-5.1) Chloride Level 105 mmol/L (98-107) Carbon Dioxide Level 30 mmol/L (21-32) Anion Gap 7 (6-14) Blood Urea Nitrogen 15 mg/dL (7-20) Creatinine 0.9 mg/dL (0.6-1.0) Estimated GFR (Cockcroft-Gault) 62.8 Glucose Level 102 mg/dL (70-99) Calcium Level 8.9 mg/dL (8.5-10.1) Laboratory Tests Test 08/10/19 04:15 Hematocrit 41.8 % (36.0-47.0) Sodium Level 142 mmol/L (136-145) Potassium Level 4.0 mmol/L (3.5-5.1) Chloride Level 105 mmol/L (98-107) Carbon Dioxide Level 30 mmol/L (21-32) Anion Gap 7 (6-14) Blood Urea Nitrogen 15 mg/dL (7-20) Creatinine 0.9 mg/dL (0.6-1.0) Estimated GFR (Cockcroft-Gault) 62.8 Glucose Level 102 mg/dL (70-99) Calcium Level 8.9 mg/dL (8.5-10.1) I have reviewed the following labs, vitals and nursing Cardiovascular: No pertinent hx Pulmonary: No pertinent hx GI: No pertinent hx Heme/Onc: No pertinent hx Psych: No pertinent hx Rheumatologic: No pertinent hx Infectious disease: No pertinent hx ENT: No pertinent hx Renal/: No pertinent hx Assessment/Plan POD#1 s/p LaVH/BSO/anterior and posterior repairs Routine PO care d/c to home later today NPV x 6 weeks light/limited x 2 weeks already has narcotics filled at home ok for OTC ibuprofen keep scheduled follow up in one week in office with me call or return sooner for any other questions not limited to but including pain unrelieved with pain pills, increased or unexplained vaginal bleeding or T>100.4 HILARIO BEE MD Aug 10, 2019 08:43
--- NOTE | 2019-08-10 08:46 | PDOC3 ---
Discharge Summary Visit Information Date of Admission: Aug 09, 2019 Date of Discharge: Aug 10, 2019 Final Diagnosis symptomatic pelvic organ prolapse Brief Hospital Course Allergies Allergies Coded Allergies Type Severity Reaction Last Updated Verified adhesive tape Adverse Reaction Intermediate Rash 08/09/19 Yes Vital Signs Vital Signs Date Time Temp Pulse Resp B/P (MAP) Pulse Ox O2 Delivery O2 Flow Rate FiO2 08/09/19 22:40 98.4 89 16 125/64 (84) 95 Room Air 98.4 08/09/19 11:02 10.0 Lab Results Laboratory Tests Test 08/10/19 04:15 Hematocrit 41.8 % (36.0-47.0) Sodium Level 142 mmol/L (136-145) Potassium Level 4.0 mmol/L (3.5-5.1) Chloride Level 105 mmol/L (98-107) Carbon Dioxide Level 30 mmol/L (21-32) Anion Gap 7 (6-14) Blood Urea Nitrogen 15 mg/dL (7-20) Creatinine 0.9 mg/dL (0.6-1.0) Estimated GFR (Cockcroft-Gault) 62.8 Glucose Level 102 mg/dL (70-99) Calcium Level 8.9 mg/dL (8.5-10.1) Laboratory Tests Test 08/10/19 04:15 Hematocrit 41.8 % (36.0-47.0) Sodium Level 142 mmol/L (136-145) Potassium Level 4.0 mmol/L (3.5-5.1) Chloride Level 105 mmol/L (98-107) Carbon Dioxide Level 30 mmol/L (21-32) Anion Gap 7 (6-14) Blood Urea Nitrogen 15 mg/dL (7-20) Creatinine 0.9 mg/dL (0.6-1.0) Estimated GFR (Cockcroft-Gault) 62.8 Glucose Level 102 mg/dL (70-99) Calcium Level 8.9 mg/dL (8.5-10.1) Brief Hospital Course Ms. Dick is a 63 old female who presented with symptomatic pelvic organ prolapse. She underwent LAVH/BSO with anterior and posterior repairs. She has had an unremarkable postoerative course. Tolerating diet, voiding well, passing gas and had a BM already too. Ambulating well and desiring to go home Assessment Assessment POD#1 s/p LaVH/BSO/anterior and posterior repairs Routine PO care d/c to home later today NPV x 6 weeks light/limited x 2 weeks already has narcotics filled at home ok for OTC ibuprofen keep scheduled follow up in one week in office with me call or return sooner for any other questions not limited to but including pain unrelieved with pain pills, increased or unexplained vaginal bleeding or T>100.4 Discharge Information Condition at Discharge: Stable Follow Up: Weeks Disposition/Orders: D/C to Home Scheduled Ascorbic Acid (Vitamin C) 500 Mg Tablet, 1,000 MG PO DAILY for supplement, (Reported) last dose this am next dose tomorrow am Entered as Reported by: CB SCOTT on 05/07/14 0808 Last Action: HELD on 08/09/19733 by HILRAIO BEE Gluc 2KCL/Chondr/Shanika Hy/Hy Ac (Glucosamine & Chondroitin Cap) 1 Each Capsule, 1 EACH PO DAILY for supplement, (Reported) Entered as Reported by: NATASHA CELESTIN on 08/03/191320 Last Action: HELD on 08/09/19733 by HILARIO BEE Hydrochlorothiazide (Hydrochlorothiazide Capsule ) 12.5 Mg Capsule, 25 MG PO PRN for water retention, Ref 0 (Reported) Entered as Reported by: NATASHA CELESTIN on 08/03/19 1314 Last Action: HELD on 08/09/19733 by HILARIO BEE Levothyroxine Sodium (Levothyroxine Sodium) 100 Mcg Tablet, 88 MCG PO DAILY for thyroid, #30 Ref 5 (Reported) last dose this am next dose tomorrow am Entered as Reported by: JF TINOCO on 04/16/16 1035 Last Taken: Unknown Dose on 08/09/19 Last Action: Continued on 08/09/19733 by HILARIO BEE Multivitamin (Multi Vitamin Daily) 1 Each Tablet, 1 TAB PO DAILY for supplement for 30 Days, #30 Ref 0 (Reported) Entered as Reported by: NATASHA CELESTIN on 08/03/19 131 Last Action: HELD on 08/09/19733 by HILARIO BEE Multivitamins With Iron (Hair Vitamin) 1 Each Tablet, 1 EACH PO DAILY for supplement, (Reported) Entered as Reported by: NATASHA CELESTIN on 08/03/19 1320 Last Action: HELD on 08/09/19733 by HILARIO BEE Saw Dry Ridge (Saw Dry Ridge) 160 Mg Capsule, 160 MG PO DAILY for supplement for hair loss, (Reported) Entered as Reported by: NATASHA CELESTIN on 08/03/19 1319 Last Action: HELD on 08/09/19733 by HILARIO BEE [Hormone Replacement] , 1 APPLIC UD, (Reported) not due Entered as Reported by: ALVA SHE on 07/26/16 1156 Last Action: HELD on 08/09/19733 by HILARIO BEE Discontinued Medications Hydrochlorothiazide (Hydrochlorothiazide Tablet) 12.5 Mg Tablet, 12.5 MG PO PRN PRN for water retention, Ref 0 (Reported) Entered as Reported by: NATASHA CELESTIN on 08/03/19 1314 Progesterone,Micronized (Prometrium) 100 Mg Capsule, 1 CAP PO DAILY for hormone, #30 Ref 11 (Reported) last dose this am next dose tomorrow am Entered as Reported by: CB SCOTT on 05/07/14 0806 Vitamins A And D (Vitamin A And D) 1 Each Capsule, 1 EACH PO, (Reported) Entered as Reported by: CB SCOTT on 05/07/14 0807 Patient Instructions Patient Instructions POD#1 s/p LaVH/BSO/anterior and posterior repairs Routine PO care d/c to home later today NPV x 6 weeks light/limited x 2 weeks already has narcotics filled at home ok for OTC ibuprofen keep scheduled follow up in one week in office with me call or return sooner for any other questions not limited to but including pain unrelieved with pain pills, increased or unexplained vaginal bleeding or T>100.4 Hemodynamically unstable?: No Operative site or wounds?: Yes Poss blood loss?: No HILARIO BEE MD Aug 10, 2019 08:46
[2019-08-10 10:05] VITALS: BP 142/75
--- NOTE | 2019-08-10 11:33 | NUR ---
Discharge Note: JF VERA [address] Discharge instructions and discharge home medications reviewed with Patient and a copy given. All questions have been answered and understanding verbalized. The following instructions and handouts were given: Bilateral Salpingo-Oophorectomy; Hysterectomy; Anterior and Posterior Repair, Colporraphy; Hysterectomy Information Discontinued lines and drains: peripheral IV in left hand removed. Pressure applied and arm elevated r/t bleeding. Bruising noted at site. Bandage applied. Patient discharged to home with self-care via ambulation to private vehicle. Family with pt. at time of discharge teaching. Pt. was offered a WC. Pt. declined need. Pt. stated "I need the walk". Pt. walked with steady gait.
--- NOTE | 2019-08-10 18:06 | PATHOLOGY ---
[facility] Accession Number: [id number] . 01 Material submitted: . PART A: uterus - UTERUS, CERVIX, BILATERAL FALLOPIAN TUBES AND OVARIES. Modifiers: bilateral PART B: abdomen - ANTERIOR/POSTERIOR MUCOSA. Modifiers: anterior, posterior . 01 Clinical history: . Pelvic pressure prolapse. . 02 Diagnosis: A. Uterus with attached bilateral fallopian tubes and ovaries and separate segment of adipose tissue, hysterectomy with bilateral salpingo-oophorectomy: - Endometrial polyp, measuring 2.3 cm in greatest dimension. - Nabothian cysts, cervix, multiple. - Adenomyosis, uterine corpus, focal (uterine weight 104 grams). - Disordered proliferative endometrium with focal cystic change. - Leiomyoma, uterine corpus, measuring 0.5 cm. 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 - Multiple small simple serous cysts with associated calcifications of bilateral ovaries. 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 . B. Segments of squamous mucosa and submucosal tissue, anterior/posterior mucosa: - Focal hypercornification and slight chronic inflammation. (JPM:shaylee 08/10/2019) [facility] 08/10/2019 1506 Local . 02 Comment: There is no evidence of malignancy. (JPM:shaylee 08/10/2019) . 02 Electronically signed: . Ameya Street MD, Pathologist NPI- [id number] . 01 Gross description: . A. Received in formalin labeled "Ana Dick, uterus, cervix, bilateral fallopian tubes and ovaries" is an intact hysterectomy specimen with attached fallopian tubes and ovaries. The uterus weighs 104 g and measures 9.0 cm from fundus to cervix, 5.7 cm from cornu to cornu, and 4.4 cm from anterior to posterior. The serosa is pink-harmon and smooth and the ectocervix is pink-harmon and glistening with a slitlike cervical os measuring 1.3 cm. The cervix is probed patent and the uterus is opened to reveal a 3.6 x 2.8 cm endometrial cavity, and a 2.5 x 1.6 cm endocervical canal. The endometrial cavity displays a polyp measuring 2.3 x 1.6 x 0.3 cm. Upon sectioning, the average endometrial thickness is 0.2 cm and the average myometrial thickness is 2.0 cm. One possible leiomyoma is present measuring 0.5 cm in greatest dimension. The right fallopian tube measures 4.5 x 0.6 cm and the left fallopian tube measures 6.1 x 0.6 cm. The fallopian tubes are both fimbriated and have pink-harmon smooth external surfaces. Both fallopian tubes are sectioned to reveal pinpoint lumens. The right ovary weighs 3 g and measures 2.8 x 2.0 x 1.7 cm. The ovary displays a harmon-white cerebriform external surface with a 1.1 cm thin-walled simple cyst and a 1.3 cm harmon-white homogeneous solid nodule. The left ovary weighs 3 g and measures 2.2 x 1.6 x 1.0 cm. The external surface is harmon-white and cerebriform and the ovary is sectioned to reveal a harmon-white unremarkable cut surface. Also present within the container is a yellow-harmon nodular structure measuring 1.6 x 1.4 x 0.6 cm, which has a ruptured area measuring 0.5 cm, exposing harmon-brown grumous material. . [employer] Operator sections of the specimen are submitted as follows: A1 12:00 cervix A2 6:00 cervix A3 anterior endomyometrium A4 posterior endomyometrium A5 entire endometrial polyp A6 possible leiomyoma A7 outreach representative right fallopian tube A8 outreach representative right ovary A9 outreach representative left fallopian tube A10 outreach representative left ovary A11 entire nodular structure from container . B. Received in formalin labeled "Ana Dick, anterior/posterior mucosa" are multiple irregular fragments of pink-harmon mucosa measuring in aggregate 4.5 x 3.5 x 0.5 cm. No gross abnormalities are identified. [employer]ing Machine Operator tissue is submitted in B1. ([facility] [place] 08/09/2019[place] [facility] 08/09/2019 1641 Local . 02 Pathologist provided ICD-10: N84.0, N88.8, N80.0, N85.9, D25.9, D27.0, N83.201, N83.202, K35.80 . 02 CPT . 875117, [id number] Specimen Comment: A courtesy copy of this report has been sent to [phone] Specimen Comment: Report sent to / DR WHITE Performed at: [facility] [address] [facility] [address], [place] [id number] MD Fransisco Tafoya MD Phone: [phone] Performed at: 02 [facility] [address], [place] [id number] MD Ameya Street MD Phone: [phone]
== END 2019-08-10 10:40 | disposition home or self-care (01) ==
LOC: SURG 05:45 → 3 NORTH 11:48
PROVIDERS: ADMIT Obstetrics & Gynecology; ATTEND Obstetrics & Gynecology
DX: N81.4 Uterovaginal prolapse, unspecified (principal)
CPT/HCPCS: 36415; 56810; 57260; 58552; 80048; 85014; 86850; 86900; 86901; 88305; 88307; 96374; A7015; G0378; G0379; J1100; J1885; J2001; J2250; J2405; J2704; J2710; J3010; J3490; J7030; J7120